=== PATIENT | female | born 1990 | race Caucasian/White ===

== ENCOUNTER 2017-09-10 19:23 | Emergency (ER) | payer OTHER, SELFPAY ==
[2017-09-10] MEDS ORDERED: MORPHINE SULFATE 4 MG INJ IV ONE ×2 (19:54→22:23)
[2017-09-10] MEDS ORDERED: Zofran 4 MG/2 ML VIAL IV ONE (19:54)
[2017-09-10] MEDS ORDERED: BENADRYL 50 MG/ML IV ONE ×2 (19:54→22:23)
[2017-09-10] MEDS ORDERED: Sodium Chloride 0.9% 1000 ML 1,000 ML IV STA (19:54)
--- NOTE | 2017-09-10 19:54 | ERPHSYRPT ---
- History of Present Illness Time Seen by Provider: 09/10/17 19:51 Historian: patient, family Exam Limitations: no limitations Physician History: pt hasw known abdominal ventral hernia awaiting repair and developed sharp pain in this area like none before about one hour agoa , no change in bowels or n/v no trauma; tender in right abd. discussed risk and benefit and pt /family wish to proceed with CT. Timing/Duration: today Activities at Onset: none Quality: sharpness, stabbing Abdominal Pain Onset Location: periumbilical Pain Radiation: no radiation Severity of Pain-Max: moderate Severity of Pain-Current: moderate Modifying Factors: Improves With: movement, palpation Previous symptoms: no prior history, recently seen Allergies/Adverse Reactions: No Known Drug Allergies Allergy (Unverified 06/13/16 23:03) Home Medications: Albuterol 2.5 mg/0.5 ml [PROVENTIL Solution 2.5 MG/0.5 ML] 06/13/16 [ History] Hx Tetanus, Diphtheria Vaccination/Date Given: No Hx Influenza Vaccination/Date Given: No Hx Pneumococcal Vaccination/Date Given: No - Review of Systems Constitutional: No Fever, No Chills Eyes: No Symptoms Ears, Nose, & Throat: No Symptoms Respiratory: No Cough, No Dyspnea Cardiac: No Chest Pain, No Edema, No Syncope Abdominal/Gastrointestinal: No Abdominal Pain, No Nausea, No Vomiting, No Diarrhea Genitourinary Symptoms: No Dysuria Musculoskeletal: No Back Pain, No Neck Pain Skin: No Rash Neurological: No Dizziness, No Focal Weakness, No Sensory Changes Psychological: No Symptoms Endocrine: No Symptoms Hematologic/Lymphatic: No Symptoms Immunological/Allergic: No Symptoms All Other Systems: Reviewed and Negative - Past Medical History Pertinent Past Medical History: Yes Respiratory History: Asthma - Past Surgical History Past Surgical History: Yes Gastrointestinal: Cholecystectomy Female Surgical History: Section - Social History Smoking Status: Current every day smoker Exposure to second hand smoke: Yes Drug Use: none Patient Lives Alone: No - Nursing Vital Signs Nursing Vital Signs: Initial Vital Signs Temperature 98.6 F 09/10/17 19:42 Pulse Rate 98 H 09/10/17 19:42 Respiratory Rate 18 09/10/17 19:42 Blood Pressure 148/69 09/10/17 19:42 O2 Sat by Pulse Oximetry 98 09/10/17 19:42 Pain Scale Pain Intensity 7 - Physical Exam General Appearance: no apparent distress, alert Eye Exam: PERRL/EOMI, eyes nml inspection Ears, Nose, Throat Exam: normal ENT inspection, pharynx normal, moist mucous membranes Neck Exam: normal inspection, non-tender, supple, full range of motion Respiratory Exam: normal breath sounds, lungs clear, No respiratory distress Cardiovascular Exam: regular rate/rhythm, normal heart sounds Gastrointestinal/Abdomen Exam: soft, No tenderness, No mass Pelvic Exam: deferred Rectal Exam: deferred Back Exam: normal inspection, normal range of motion, No CVA tenderness, No vertebral tenderness Extremity Exam: normal inspection, normal range of motion, pelvis stable Neurologic Exam: alert, oriented x 3, cooperative, normal mood/affect, nml cerebellar function, sensation nml, No motor deficits Skin Exam: normal color, warm, dry - Course Nursing assessment & vital signs reviewed: Yes - CT Exams Abdomen/Pelvis CT Interpretation: Tele-radiologist Report, Other (mild stranding in umbilical hernia; kidney stones nonubstructing.) Ordered Tests: Active Orders 24 hr Category Date Time Status Clean Catch Urine Specimen STAT Care 09/10/17 19:54 Active IV Insertion STAT Care 09/10/17 19:54 Active NPO (ED) STAT Care 09/10/17 19:54 Active ABDOMEN AND PELVIS W/0 CONTRAS [CT] Stat Exams 09/10/17 19:55 Taken AMYLASE Stat Lab 09/10/17 20:52 Completed CBC W DIFF Stat Lab 09/10/17 20:52 Completed CMP Stat Lab 09/10/17 20:52 Completed CULTURE,URINE Stat Lab 09/10/17 22:45 Received HCG QUALITATIVE,SERUM Stat Lab 09/10/17 20:52 Completed LIPASE Stat Lab 09/10/17 20:52 Completed Lactic Acid Stat Lab 09/10/17 20:25 Completed UA W/ MICROSCOPIC Stat Lab 09/10/17 22:45 Completed Medication Summary Discontinued Medications Generic Name Dose Route Start Last Admin Trade Name Freq PRN Reason Stop Dose Admin Diphenhydramine HCl 25 mg 09/10/17 19:54 09/10/17 20:30 Benadryl 50 Mg/Ml IV 09/10/17 19:55 25 mg STAT ONE Administration Diphenhydramine HCl Confirm 09/10/17 20:21 Benadryl 50 Mg/Ml Administered 09/10/17 20:22 Dose 50 mg .ROUTE .STK-MED ONE Diphenhydramine HCl 25 mg 09/10/17 22:23 09/10/17 22:36 Benadryl 50 Mg/Ml IV 09/10/17 22:24 25 mg STAT ONE Administration Diphenhydramine HCl Confirm 09/10/17 22:26 Benadryl 50 Mg/Ml Administered 09/10/17 22:27 Dose 50 mg .ROUTE .STK-MED ONE Sodium Chloride 1,000 mls @ 999 mls/hr 09/10/17 19:54 09/10/17 20:32 Sodium Chloride 0.9% 1000 Ml IV 09/10/17 20:54 999 mls/hr .Q1H1M STA Administration Sodium Chloride Confirm 09/10/17 20:21 Sodium Chloride 0.9% 1000 Ml Administered 09/10/17 20:22 Dose 1,000 mls @ ud .ROUTE .STK-MED ONE Morphine Sulfate 4 mg 09/10/17 19:54 09/10/17 20:31 Morphine Sulfate 4 Mg Inj IV 09/10/17 19:55 4 mg STAT ONE Administration Morphine Sulfate Confirm 09/10/17 20:21 Morphine Sulfate 4 Mg Inj Administered 09/10/17 20:22 Dose 4 mg .ROUTE .STK-MED ONE Morphine Sulfate 4 mg 09/10/17 22:23 09/10/17 22:36 Morphine Sulfate 4 Mg Inj IV 09/10/17 22:24 4 mg STAT ONE Administration Morphine Sulfate Confirm 09/10/17 22:27 Morphine Sulfate 4 Mg Inj Administered 09/10/17 22:28 Dose 4 mg .ROUTE .STK-MED ONE Ondansetron HCl 4 mg 09/10/17 19:54 09/10/17 20:31 Zofran 4 Mg/2 Ml Vial IV 09/10/17 19:55 4 mg STAT ONE Administration Ondansetron HCl Confirm 09/10/17 20:20 Zofran 4 Mg/2 Ml Vial Administered 09/10/17 20:21 Dose 4 mg .ROUTE .STK-MED ONE Lab/Rad Data: Laboratory Result Diagrams 09/10/17 20:52 09/10/17 20:52 Laboratory Results 09/10/17 09/10/17 09/10/17 Range/Units 22:45 20:52 20:52 WBC (4.0-10.5) K/mm3 RBC (4.1-5.4) M/mm3 Hgb (12.0-16.0) gm/dl Hct (35-47) % MCV (78-100) fl MCH (26-32) pg MCHC (32-36) g/dl RDW (11.5-14.0) % Plt Count (150-450) K/mm3 MPV (6-9.5) fl Gran % (36.0-66.0) % Lymphocytes % (24.0-44.0) % Monocytes % (0.0-12.0) % Eosinophils % (0.00-5.0) % Basophils % (0.0-0.4) % Basophils # (0-0.4) Sodium 142 (136-145) mEq/L Potassium 3.8 (3.5-5.1) mEq/L Chloride 107 (98-107) mEq/L Carbon Dioxide 23.3 (21-32) mEq/L Anion Gap 15.4 H (5-15) MEQ/L BUN 20 (9-20) mg/dL Creatinine 0.83 (0.55-1.30) mg/dl Estimated GFR > 60 ML/MIN Glucose 89 (70-110) MG/DL Lactic Acid (0.4-2.0) Calcium 9.2 (8.5-10.1) mg/dL Total Bilirubin 0.70 (0.2-1.0) mg/dL AST 35 (15-37) U/L ALT 59 (12-78) U/L Alkaline Phosphatase 70 (46-116) U/L Serum Total Protein 7.7 (6.4-8.2) gm/dL Albumin 4.3 (3.4-5.0) g/dL Amylase 41 (25-115) U/L Lipase 148 (73-393) U/L Serum , Qual NEGATIVE (Negative) Ur Collection Type VOID Urine Color YELLOW (YELLOW) Urine Appearance CLOUDY (CLEAR) Urine pH 6.0 (5-6) Ur Specific [place] 1.020 (1.005-1.025) Urine Protein NEGATIVE (Negative) Urine Ketones NEGATIVE (NEGATIVE) Urine Blood TRACE NON-HEM (0-5) Petr/ul Urine Nitrite NEGATIVE (NEGATIVE) Urine Bilirubin NEGATIVE (NEGATIVE) Urine Urobilinogen NORMAL (0-1) mg/dL Ur Leukocyte Esterase TRACE (NEGATIVE) Urine Microscopic RBC 5-10 (0-2) /HPF Urine Microscopic WBC 5-10 (0-5) /HPF Ur Epithelial Cells MANY (FEW) /HPF Urine Bacteria MODERATE (NEGATIVE) /HPF Urine Mucus MODERATE (NEGATIVE) /HPF Urine Culture Reflexed YES (NO) Urine Glucose NEGATIVE (NEGATIVE) mg/dL Specimen Received 09/10/17 2250 09/10/17 09/10/17 Range/Units 20:52 20:25 WBC 11.9 H (4.0-10.5) K/mm3 RBC 4.15 (4.1-5.4) M/mm3 Hgb 12.7 (12.0-16.0) gm/dl Hct 37.3 (35-47) % MCV 89.9 (78-100) fl MCH 30.6 (26-32) pg MCHC 34.0 (32-36) g/dl RDW 12.3 (11.5-14.0) % Plt Count 288 (150-450) K/mm3 MPV 11.1 H (6-9.5) fl Gran % 66.3 H (36.0-66.0) % Lymphocytes % 25.5 (24.0-44.0) % Monocytes % 5.9 (0.0-12.0) % Eosinophils % 2.1 (0.00-5.0) % Basophils % 0.2 (0.0-0.4) % Basophils # 0.02 (0-0.4) Sodium (136-145) mEq/L Potassium (3.5-5.1) mEq/L Chloride (98-107) mEq/L Carbon Dioxide (21-32) mEq/L Anion Gap (5-15) MEQ/L BUN (9-20) mg/dL Creatinine (0.55-1.30) mg/dl Estimated GFR ML/MIN Glucose (70-110) MG/DL Lactic Acid 1.1 (0.4-2.0) Calcium (8.5-10.1) mg/dL Total Bilirubin (0.2-1.0) mg/dL AST (15-37) U/L ALT (12-78) U/L Alkaline Phosphatase (46-116) U/L Serum Total Protein (6.4-8.2) gm/dL Albumin (3.4-5.0) g/dL Amylase (25-115) U/L Lipase (73-393) U/L Serum , Qual (Negative) Ur Collection Type Urine Color (YELLOW) Urine Appearance (CLEAR) Urine pH (5-6) Ur Specific [place] (1.005-1.025) Urine Protein (Negative) Urine Ketones (NEGATIVE) Urine Blood (0-5) Petr/ul Urine Nitrite (NEGATIVE) Urine Bilirubin (NEGATIVE) Urine Urobilinogen (0-1) mg/dL Ur Leukocyte Esterase (NEGATIVE) Urine Microscopic RBC (0-2) /HPF Urine Microscopic WBC (0-5) /HPF Ur Epithelial Cells (FEW) /HPF Urine Bacteria (NEGATIVE) /HPF Urine Mucus (NEGATIVE) /HPF Urine Culture Reflexed (NO) Urine Glucose (NEGATIVE) mg/dL Specimen Received - Progress Progress: improved, re-examined Progress Note: 09/10/17 23:53 pain is now controlled and lilliana PO; discussed that no precise etiology found and that undetected pathology may be evolving , ans that hernia could also eventually become incarc or coulf be in early stages but pt prefers DC to F/U as outpt instead of admit or furhter w/u in [facility]; she will return if pain recurs and will f/u with PCP otherwise; 09/10/17 23:56 she also prefers tx for uti with keflex at this time. 09/10/17 23:59 pt states no pelvic pain or discharge; 09/11/17 00:03 took extra time to get the UA delaying dispo; Counseled pt/family regarding: lab results, diagnosis, need for follow-up, rad results - Departure Time of Disposition: 23:55 Departure Disposition: Home Clinical Impression: Abdominal pain of unknown cause, Renal calculi, Umbilical hernia Condition: Good Critical Care Time: No Referrals: VENKATESH WIGGINS [Primary Care Provider] - Instructions: Abdominal Pain-Adult, Abdominal Hernia, Urinary Tract Infection ( UTI) Additional Instructions: followup with your dr for hernia repair as planned and to recheck urine and kidney stones; strain urine for stones we have not determined the exact cause for your pain at this time but could be kidney stones moving or an early hernia problem or some other problem not seen yet onthe CT sca\n; return meantime if any concenrs or getting worse agian. Prescriptions: Cephalexin Mh 500 mg [Keflex 500 mg] 500 mg PO TID #30 capsule Hydrocodone/Acetaminophen [[place] 5-325 Tablet] 1 each PO Q4-6HPRN PRN #10 tablet PRN Reason: Pain
[2017-09-10] MEDS ORDERED: Zofran 4 MG/2 ML VIAL ONE (20:20)
[2017-09-10] MEDS ORDERED: Sodium Chloride 0.9% 1000 ML 1,000 ML ONE (20:21)
[2017-09-10] MEDS ORDERED: MORPHINE SULFATE 4 MG INJ ONE ×2 (20:21→22:27)
[2017-09-10] MEDS ORDERED: BENADRYL 50 MG/ML ONE ×2 (20:21→22:26)
[2017-09-10 20:56] LABS: BASOPHIL % 0.2 % (0.0-0.4); Eosinophil % 2.1 % (0.00-5.0); Granulocytes % 66.3 % (36.0-66.0); Lymphocytes % 25.5 % (24.0-44.0); Mean Cell Volume 89.9 fl (78-100); Mean Corpuscular Hemoglobin 30.6 pg (26-32); Mean Platelet Volume 11.1 fl (6-9.5); Monocytes % 5.9 % (0.0-12.0); Platelet Count 288 K/mm3 (150-450); Red Blood Count 4.15 M/mm3 (4.1-5.4); Red Cell Distribution Width 12.3 % (11.5-14.0); White Blood Count 11.9 K/mm3 (4.0-10.5)
[2017-09-10 21:19] LABS: ALBUMIN 4.3 g/dL (3.4-5.0); ALKALINE PHOSPHATASE 70 U/L (46-116); ANION GAP 15.4 MEQ/L (5-15); BLOOD UREA NITROGEN 20 mg/dL (9-20); CHLORIDE 107 mEq/L (98-107); Carbon Dioxide 23.3 mEq/L (21-32); Glucose 89 MG/DL (70-110); LIPASE 148 U/L (73-393); Potassium 3.8 mEq/L (3.5-5.1); SGOT/AST 35 U/L (15-37); SGPT/ALT 59 U/L (12-78); SODIUM 142 mEq/L (136-145); Total Protein 7.7 gm/dL (6.4-8.2)
[2017-09-10 23:27] LABS: ADD URINE CULTURE? YES (NO); Bacteria MODERATE /HPF (NEGATIVE); Bilirubin NEGATIVE (NEGATIVE); Blood TRACE NON-HEM Ery/ul (0-5); COMPLETE URINE MICROSCOPIC? YES; Collection Type VOID; Epithelial Cells MANY /HPF (FEW); Glucose NEGATIVE (NEGATIVE); Leukocyte Esterase TRACE (NEGATIVE); Mucus MODERATE /HPF (NEGATIVE)
[2017-09-11] MEDS ORDERED: Hydromorphone 1 mg/ml Ampule IV ONE (00:02)
[2017-09-11] MEDS ORDERED: KEFLEX 500 MG PO ONE (00:02)
[2017-09-11] MEDS ORDERED: NORCO 5/325 MG PO ONE (00:02)
[2017-09-11] MEDS ORDERED: NORCO 5/325 MG ONE (00:08)
[2017-09-11] MEDS ORDERED: KEFLEX 500 MG ONE (00:15)
[2017-09-11] MEDS ORDERED: Hydromorphone 1 mg/ml Ampule ONE (00:16)
[2017-09-11 00:39] VITALS: BP 119/70; PULSE 76; O2SAT 100
--- NOTE | 2017-09-11 08:47 | XRAY ---
Indication: Right upper quadrant pain. Multiple contiguous axial images obtained through the abdomen and pelvis without contrast as ordered. Comparison: March 21, 2016. Lung bases are clear. Heart is not enlarged. Noncontrasted stomach and bowel loops appear nonobstructed. Normal appendix. There is again tiny cul-de-sac fluid presumed from ruptured/leaking cyst. No free air. Stable nonobstructing bilateral renal micro-calculi and cholecystectomy clips. Remaining liver, pancreas, spleen, adrenal glands, kidneys, ureters, bladder, uterus, and aorta appear unremarkable for noncontrast exam. Osseous structures intact. Stable tiny periumbilical fatty hernia with minimal stranding. Impression: 1. Again tiny cul-de-sac fluid presumed from ruptured/leaking cyst. 2. Stable nonobstructing bilateral renal micro-calculi. 3. Stable tiny periumbilical fatty hernia with minimal stranding. 4. No new or acute intra-abdominal/pelvic abnormalities on this noncontrast exam. Comment: Preliminary interpretation was made by C. No critical discrepancy. CTDI 18.03
== END 2017-09-11 00:39 | disposition home or self-care (01) ==
LOC: ED 19:23
DX: R10.9 Unspecified abdominal pain (principal); N20.0 Calculus of kidney; K42.9 Umbilical hernia without obstruction or gangrene
CPT/HCPCS: 36000; 36415; 74176; 80053; 81000; 82150; 83605; 83690; 84703; 85025; 87086; 96360; 96365; 96374; 96375; 96376; 99284; J1170; J1200; J2270; J2405; A9270-GY

== ENCOUNTER 2017-12-31 07:03 | Observation (INO) | payer OTHER ==
[2017-12-31] MEDS ORDERED: Sodium Chloride 0.9% 1000 ML 1,000 ML IV STA (07:37)
--- NOTE | 2017-12-31 07:44 | ERPHSYRPT ---
- History of Present Illness Time Seen by Provider: 12/31/17 07:33 Source: patient, family Exam Limitations: no limitations Patient Subjective Stated Complaint: states pt just got xanax prescription filled on 12/30/17. He states pt took 4 xanax on 12/30/17. He states 30 minutes prior to arrival pt took approx 26 0.5mg xanax due to anargument between her and . Triage Nursing Assessment: pt pink, warm, dry. pupils perrl.. pt has jerky movements. pt alert and oriented x3. speach slurred. Physician History: This is a 27-year-old white female with history of asthma Patient is brought by her with complaint that the patient had taken 26 0.5 mg Xanax tablets approximately one half hour prior to arrival patient apparently had been in an argument with her decided to take the Xanax. Patient states she wasn't trying to kill her self. includes patient does admit to methamphetamine use yesterday. Past medical history includes asthma, bladder cancer, hepatitis Past surgical history includes cholecystectomy, , hernia repair Social history positive tobacco use positive methamphetamine use patient denies alcohol use Timing/Duration: today Severity: moderate (one half hour prior to arrival) Modifying Factors: Improves With: other (intentional overdose of XANAX) Allergies/Adverse Reactions: No Known Drug Allergies Allergy (Unverified 12/31/17 07:30) Home Medications: Albuterol 2.5 mg/3 ml Neb [Proventil 2.5 mg/3 ml Neb] 2.5 mg IH Q4-6HPRN PRN 12/31/17 [History] Albuterol 8 gm Mdi Hfa [Ventolin Hfa MDI] 8 gm IH Q4-6HPRN PRN 12/31/17 [ History] Alprazolam 0.5 mg [xanAX 0.5 MG] 0.5 mg PO BID 12/31/17 [History] Paroxetine HCl [Paroxetine HCl] 20 mg PO DAILY 12/31/17 [History] Hx Tetanus, Diphtheria Vaccination/Date Given: Yes (up to date) Hx Influenza Vaccination/Date Given: Yes Hx Pneumococcal Vaccination/Date Given: No Immunizations Up to Date: Yes - Review of Systems Constitutional: No Fever, No Chills Eyes: No Symptoms Ears, Nose, & Throat: No Symptoms Respiratory: No Cough, No Dyspnea Cardiac: No Chest Pain, No Edema, No Syncope Abdominal/Gastrointestinal: No Abdominal Pain, No Nausea, No Vomiting, No Diarrhea Genitourinary Symptoms: No Dysuria Musculoskeletal: No Back Pain, No Neck Pain Skin: No Rash Neurological: No Dizziness, No Focal Weakness, No Sensory Changes Psychological: Drug Abuse, Other (intentional overdose of xanax) Endocrine: No Symptoms All Other Systems: Reviewed and Negative - Past Medical History Pertinent Past Medical History: Yes Respiratory History: Asthma History: Bladder Cancer - Past Surgical History Past Surgical History: Yes Gastrointestinal: Hernia Repair Female Surgical History: Section Other Surgical History: hernia repair 2015 - Social History Smoking Status: Current every day smoker How long have you smoked: 18 Exposure to second hand smoke: Yes Drug Use: marijuana, methamphetamines Patient Lives Alone: No - Female History Hx Last Menstrual Period: minimal periods Hx Now: No - Nursing Vital Signs Nursing Vital Signs: Initial Vital Signs Temperature 97.4 F 12/31/17 07:05 Pulse Rate 92 H 12/31/17 07:05 Respiratory Rate 18 12/31/17 07:05 Blood Pressure 110/60 12/31/17 07:05 O2 Sat by Pulse Oximetry 97 12/31/17 07:05 Pain Scale Pain Intensity 0 - Physical Exam General Appearance: other (well_developed well_nourished white female slurry speech) Eye Exam: PERRL/EOMI (fundi unremarkable), eyes nml inspection, other (fundi unremarkable) Ears, Nose, Throat Exam: normal ENT inspection, TMs normal, pharynx normal, moist mucous membranes Neck Exam: normal inspection, non-tender, supple, full range of motion Respiratory Exam: normal breath sounds, lungs clear, No respiratory distress Cardiovascular Exam: regular rate/rhythm, normal heart sounds, normal peripheral pulses Gastrointestinal/Abdomen Exam: soft, normal bowel sounds, No tenderness, No mass Back Exam: normal inspection, normal range of motion, No CVA tenderness, No vertebral tenderness Extremity Exam: normal inspection, normal range of motion, pelvis stable Neurologic Exam: alert, oriented x 3, cooperative, normal mood/affect, nml cerebellar function, nml station & gait, sensation nml, No motor deficits Skin Exam: normal color, warm, dry, No rash Lymphatic Exam: No adenopathy SpO2 Interpretation: normal (97%) - Course Nursing assessment & vital signs reviewed: Yes EKG Interpreted by Me: RATE (84 bpm), Sinus Rhythm, NORMAL AXIS, Other (EKG, normal sinus rhythm 64 beats for minute, normal axis, no acute ST or T wave changes, essentially normal EKG) Ordered Tests: Active Orders 24 hr Category Date Time Status Bedrest ROUTINE Activity 12/31/17 10:08 Active Admission/Status Order ROUTINE Care 12/31/17 10:08 Active Call Admit Doctor for Orders ON ADMISSION Care 12/31/17 10:08 Active Code Status Order ROUTINE Care 12/31/17 10:08 Active Consult Telemental Health ROUTINE Care 12/31/17 10:08 Active EKG-ER Only STAT Care 12/31/17 07:37 Completed IV Care Q6H Care 12/31/17 10:08 Active IV Insertion STAT Care 12/31/17 07:37 Completed Neuro Checks Q2H Care 12/31/17 10:08 Active Pulse Oximetry (ED) STAT Care 12/31/17 07:37 Completed Telemetry ROUTINE Care 12/31/17 10:08 Active Clear Liquid Diet 12/31/17 Lunch Completed ACETAMINOPHEN Stat Lab 12/31/17 08:00 Completed ACETAMINOPHEN Urgent Lab 12/31/17 12:00 Completed CBC W DIFF Stat Lab 12/31/17 08:00 Completed CMP Stat Lab 12/31/17 08:00 Completed ETHYL ALCOHOL Stat Lab 12/31/17 08:00 Completed HCG QUALITATIVE,SERUM Stat Lab 12/31/17 08:00 Completed SALICYLATE Stat Lab 12/31/17 08:00 Completed UA W/RFX UR CULTURE Stat Lab 12/31/17 07:37 Ordered Urine Triage Profile Stat Lab 12/31/17 08:00 Completed Pulse Oximetry CONTINUOUS RT 12/31/17 10:08 Active Transfer Order Routine Transfer 12/31/17 Completed Medication Summary Generic Name Dose Route Start Last Admin Trade Name Freq PRN Reason Stop Dose Admin Albuterol Sulfate 2.5 mg 12/31/17 15:10 Proventil 2.5 Mg/3 Ml Neb IH 01/30/18 15:09 Q4H PRN PRN SHORTNESS OF BREATH/WHEEZING Albuterol Sulfate 2 puff 12/31/17 15:12 Proventil Common Canister IH 01/30/18 15:11 Q4H PRN PRN Sodium Chloride 1,000 mls @ 100 mls/hr 12/31/17 10:08 12/31/17 10:24 Sodium Chloride 0.9% 1000 Ml IV 01/30/18 10:07 Not Given .Q10H PRISCILLA Paroxetine HCl 20 mg 12/31/17 15:15 12/31/17 15:22 Paxil 20 Mg PO 01/30/18 15:14 Not Given DAILY PRISCILLA Discontinued Medications Generic Name Dose Route Start Last Admin Trade Name Freq PRN Reason Stop Dose Admin Sodium Chloride 1,000 mls @ 999 mls/hr 12/31/17 07:37 12/31/17 08:21 Sodium Chloride 0.9% 1000 Ml IV 12/31/17 08:37 999 mls/hr .Q1H1M STA Administration Sodium Chloride Confirm 12/31/17 08:12 Sodium Chloride 0.9% 1000 Ml Administered 12/31/17 08:13 Dose 1,000 mls @ ud .ROUTE .[email or web address] Lab/Rad Data: Laboratory Result Diagrams 12/31/17 08:00 12/31/17 08:00 Laboratory Results 12/31/17 12/31/17 12/31/17 Range/Units 08:00 08:00 08:00 WBC 9.6 (4.0-10.5) K/mm3 RBC 4.40 (4.1-5.4) M/mm3 Hgb 13.1 (12.0-16.0) gm/dl Hct 39.3 (35-47) % MCV 89.3 (78-100) fl MCH 29.8 (26-32) pg MCHC 33.3 (32-36) g/dl RDW 12.5 (11.5-14.0) % Plt Count 288 (150-450) K/mm3 MPV 10.6 H (6-9.5) fl Gran % 56.4 (36.0-66.0) % Lymphocytes % 31.4 (24.0-44.0) % Monocytes % 9.9 (0.0-12.0) % Eosinophils % 2.0 (0.00-5.0) % Basophils % 0.3 (0.0-0.4) % Basophils # 0.03 (0-0.4) Sodium 140 (136-145) mEq/L Potassium 3.9 (3.5-5.1) mEq/L Chloride 105 (98-107) mEq/L Carbon Dioxide 25.7 (21-32) mEq/L Anion Gap 13.3 (5-15) MEQ/L BUN 20 (9-20) mg/dL Creatinine 0.99 (0.55-1.30) mg/dl Estimated GFR > 60 ML/MIN Glucose 70 (70-110) MG/DL Calcium 9.8 (8.5-10.1) mg/dL Total Bilirubin 0.30 (0.2-1.0) mg/dL AST 35 (15-37) U/L ALT 52 (12-78) U/L Alkaline Phosphatase 74 (46-116) U/L Serum Total Protein 7.9 (6.4-8.2) gm/dL Albumin 4.2 (3.4-5.0) g/dL Serum , Qual NEGATIVE (Negative) Salicylates 3.0 (2.8-20.0) mg/dl Urine Opiates Level (NEGATIVE) Ur Methadone (NEGATIVE) Acetaminophen < 2.0 L (10-30) ug/ml Urine Barbiturates (NEGATIVE) Ur Phencyclidine (PCP) (NEGATIVE) Urine Amphetamine (NEGATIVE) U Benzodiazepine Level (NEGATIVE) Urine Cocaine (NEGATIVE) Urine Marijuana (THC) (NEGATIVE) Ethyl Alcohol < 0.010 (0.00-0.01) % 12/31/17 Range/Units 08:00 WBC (4.0-10.5) K/mm3 RBC (4.1-5.4) M/mm3 Hgb (12.0-16.0) gm/dl Hct (35-47) % MCV (78-100) fl MCH (26-32) pg MCHC (32-36) g/dl RDW (11.5-14.0) % Plt Count (150-450) K/mm3 MPV (6-9.5) fl Gran % (36.0-66.0) % Lymphocytes % (24.0-44.0) % Monocytes % (0.0-12.0) % Eosinophils % (0.00-5.0) % Basophils % (0.0-0.4) % Basophils # (0-0.4) Sodium (136-145) mEq/L Potassium (3.5-5.1) mEq/L Chloride (98-107) mEq/L Carbon Dioxide (21-32) mEq/L Anion Gap (5-15) MEQ/L BUN (9-20) mg/dL Creatinine (0.55-1.30) mg/dl Estimated GFR ML/MIN Glucose (70-110) MG/DL Calcium (8.5-10.1) mg/dL Total Bilirubin (0.2-1.0) mg/dL AST (15-37) U/L ALT (12-78) U/L Alkaline Phosphatase (46-116) U/L Serum Total Protein (6.4-8.2) gm/dL Albumin (3.4-5.0) g/dL Serum , Qual (Negative) Salicylates (2.8-20.0) mg/dl Urine Opiates Level NEG. (NEGATIVE) Ur Methadone NEG. (NEGATIVE) Acetaminophen (10-30) ug/ml Urine Barbiturates NEG. (NEGATIVE) Ur Phencyclidine (PCP) NEG. (NEGATIVE) Urine Amphetamine POS. (NEGATIVE) U Benzodiazepine Level POS. (NEGATIVE) Urine Cocaine NEG. (NEGATIVE) Urine Marijuana (THC) NEG. (NEGATIVE) Ethyl Alcohol (0.00-0.01) % - Progress Progress: improved Progress Note: 12/31/17 08:41 Patient somnolent. Vital signs stable. O2 sat 99%. CBC chemistry essentially normal. Urine drug screen positive for amphetamines and benzodiazepines. Patient receiving IV normal saline. Poison control contacted by the patient's nurse recommends supportive care. Patient will need monitoring. Case discussed with Dr. Patiño. Will place on ICU observation. Repeat acetaminophen level IV hours after last draw. Patient will need psych consult. - Departure Time of Disposition: 09:45 Departure Disposition: Observation Clinical Impression: Intentional benzodiazepine overdose Qualifiers: Encounter type: initial encounter Qualified Code(s): T42.4X2A - Poisoning by benzodiazepines, intentional self-harm, initial encounter Condition: Fair Critical Care Time: No
[2017-12-31 08:09] LABS: BASOPHIL % 0.3 % (0.0-0.4); Basophil (Absolute #) 0.03 (0-0.4); Eosinophil (Absolute #) 0.19 (0-0.5); Granulocyte Absolute (ANC) 5.44 (1.4-6.9); Granulocytes % 56.4 % (36.0-66.0); Hematocrit 39.3 % (35-47); Hemoglobin 13.1 gm/dl (12.0-16.0); Lymphocyte (Absolute #) 3.02 (1.0-4.6); Lymphocytes % 31.4 % (24.0-44.0); Mean Cell Volume 89.3 fl (78-100); Mean Corpuscular Hemoglobin 29.8 pg (26-32); Mean Corpuscular Hgb Concent. 33.3 g/dl (32-36); Mean Platelet Volume 10.6 fl (6-9.5); Monocyte (Absolute #) 0.95 (0.0-1.3); Monocytes % 9.9 % (0.0-12.0); Platelet Count 288 K/mm3 (150-450); Red Cell Distribution Width 12.5 % (11.5-14.0); White Blood Count 9.6 K/mm3 (4.0-10.5)
[2017-12-31] MEDS ORDERED: Sodium Chloride 0.9% 1000 ML 1,000 ML ONE (08:12)
[2017-12-31 08:18] LABS: Amphetamine,Urine POS. (NEGATIVE); Barbiturate,Urine NEG. (NEGATIVE); Benzodiazepine,Urine POS. (NEGATIVE); Cocaine,Urine NEG. (NEGATIVE); Methadone,Urine NEG. (NEGATIVE); Opiate,Urine NEG. (NEGATIVE); PCP,Urine NEG. (NEGATIVE); THC,Urine NEG. (NEGATIVE)
[2017-12-31 08:31] LABS: ALBUMIN 4.2 g/dL (3.4-5.0); ALKALINE PHOSPHATASE 74 U/L (46-116); ANION GAP 13.3 MEQ/L (5-15); BLOOD UREA NITROGEN 20 mg/dL (9-20); CHLORIDE 105 mEq/L (98-107); Calcium 9.8 mg/dL (8.5-10.1); Carbon Dioxide 25.7 mEq/L (21-32); Creatinine 1 0.99 mg/dl (0.55-1.30); EST GLOMERULAR FILTRATION RATE > 60 ML/MIN; ETHYL ALCOHOL < 0.010 % (0.00-0.01); Glucose 70 MG/DL (70-110); Potassium 3.9 mEq/L (3.5-5.1); SGOT/AST 35 U/L (15-37); SGPT/ALT 52 U/L (12-78); SODIUM 140 mEq/L (136-145); Total Protein 7.9 gm/dL (6.4-8.2)
[2017-12-31 08:34] LABS: ACETAMINOPHEN < 2.0 ug/ml (10-30)
[2017-12-31] MEDS ORDERED: Sodium Chloride 0.9% 1000 ML 1,000 ML IV SCH (10:08)
--- NOTE | 2017-12-31 14:01 | PCM.HP ---
History of Present Illness - Chief Complaint Chief Complaint: overdose History of Present Illness: is a 27 year old female pt who per ER note took about #20 of xanax 0.5 mg pills. She is somnolent and unable to answer any questions. Per RN her said, "She doesn't need to be here. She just took those because she was mad at me." She wakes briefly to voice then falls right back to sleep. She is somewhat cooperative (opens her mouth very briefly to me upon request). Labs were positive for amphetamines and benzodiazepines. Tylenol and aspirin levels negative. - Review of Systems All Other Systems: Unable due to condition Medications & Allergies Home Medications: Home Medication List Albuterol 2.5 mg/3 ml Neb [Proventil 2.5 mg/3 ml Neb] 2.5 mg IH Q4-6HPRN PRN 12/31/17 [History Confirmed 12/31/17] Albuterol 8 gm Mdi Hfa [Ventolin Hfa MDI] 8 gm IH Q4-6HPRN PRN 12/31/17 [ History Confirmed 12/31/17] Alprazolam 0.5 mg [xanAX 0.5 MG] 0.5 mg PO BID 12/31/17 [History Confirmed 12/31/17] Paroxetine HCl [Paroxetine HCl] 20 mg PO DAILY 12/31/17 [History Confirmed 12/31] Allergies/Adverse Reactions: Allergies Allergy/AdvReac Type Severity Reaction Status Date / Time No Known Drug Allergies Allergy Unverified 12/31/17 07:30 - Past Medical History Past Medical History: Yes Respiratory History: Asthma History: Bladder Cancer - Female History Hx Last Menstrual Period: minimal periods Are you now?: (unable to assess) - Past Surgical History Past Surgical History: Yes GI Surgical History: Hernia Repair Female Surgical History: Section Other Surgical History: hernia repair 2015 - Social History Smoking Status: Unknown if ever smoked How long have you smoked: 18 Exposure to second hand smoke: Yes Alcohol: None Drug Use: marijuana, methamphetamines - Physical Exam Vital Signs: Vital Signs - 24 hr Temp Pulse Resp BP Pulse Ox 12/31/17 13:46 97 F 90 18 91/52 99 12/31/17 12:00 97 F 79 18 94/64 99 02/10/18 10:16 97 F 81 18 92/62 99 12/31/17 10:11 100 12/31/17 08:57 78 18 108/60 99 12/31/17 08:23 81 18 118/74 99 12/31/17 07:05 97.4 F 92 H 18 110/60 99 General Appearance: other (somnolent; wakes briefly to voice) Neurologic Exam: other (speech is slurred; cannot complete a sentence aside from "I have to pee" x 1) Eye Exam: other (Pupils equal, round, dilated, sluggishly reactive bilaterally.) Ears, Nose, Throat Exam: pharynx normal, moist mucous membranes Respiratory Exam: normal breath sounds, lungs clear, No crackles/rales, No rhonchi, No wheezing Cardiovascular Exam: regular rate/rhythm, normal heart sounds, No murmur Gastrointestinal/Abdomen Exam: soft, normal bowel sounds, tenderness (suprapubic ; states, "I have to pee"), No distention, No mass Extremity Exam: normal inspection, No pedal edema, No swelling Skin Exam: normal color, warm, dry, No rash Results - Labs Lab/Micro Results: Lab Results-Last 24 Hours 12/31/17 Range/Units 12:00 Acetaminophen < 2.0 L (10-30) ug/ml Assessment/Plan (1) Intentional benzodiazepine overdose Current Visit: Yes Status: Acute Qualifiers: Encounter type: initial encounter Qualified Code(s): T42.4X2A - Poisoning by benzodiazepines, intentional self-harm, initial encounter Assessment & Plan: When medically cleared, will need to have a telemental consult. on telemetry in ICU. Code(s): T42.4X2A - POISONING BY BENZODIAZEPINES, INTENTIONAL SELF-HARM, INIT
[2017-12-31] MEDS ORDERED: Ventolin Hfa MDI IH PRN (15:10)
[2017-12-31] MEDS ORDERED: PROVENTIL 2.5 MG/3 ML NEB IH PRN (15:10)
[2017-12-31] MEDS ORDERED: PROVENTIL COMMON CANISTER IH PRN (15:12)
[2017-12-31] MEDS ORDERED: Paxil 20 MG PO SCH (15:15)
[2017-12-31 15:56] VITALS: BP 94/54
[2017-12-31 16:43] VITALS: O2SAT 97
[2017-12-31 18:04] VITALS: PULSE 99
== END 2017-12-31 20:30 | disposition left against medical advice (07) ==
LOC: ED 07:03 → ICU 09:49
PROVIDERS: ADMIT Family Medicine; ATTEND Family Medicine
DX: T42.4X2A Poisoning by benzodiazepines, intentional self-harm, initial encounter (principal); Z79.899 Other long term (current) drug therapy
CPT/HCPCS: 36000; 36415; 80053; 80307; 84703; 85025; 90791; 93005; 96360; 96361; 99285; G0378; G0480; G0481; Q3014

== ENCOUNTER 2019-05-15 10:04 | Emergency (ER) | payer OTHER ==
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
[2019-05-15] MEDS ORDERED: ZOFRAN ODT 4 MG ONE (10:36)
[2019-05-15] MEDS ORDERED: MOTRIN 600 MG ONE (10:36)
[2019-05-15] MEDS: ZOFRAN ODT 4 MG PO ONE (10:39)
[2019-05-15 10:58] VITALS: BP 138/80; PULSE 92
[2019-05-15] MEDS: MOTRIN 600 MG PO ONE (11:24)
[2019-05-15 11:31] VITALS: O2SAT 99
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
== END 2019-05-15 11:42 | disposition home or self-care (01) ==
LOC: ED 10:04
DX: S00.93XA Contusion of unspecified part of head, initial encounter (principal); S06.0X0A Concussion without loss of consciousness, initial encounter; V28.1XXA Motorcycle passenger injured in noncollision transport accident in nontraffic accident, initial encounter; J45.909 Unspecified asthma, uncomplicated; K75.9 Inflammatory liver disease, unspecified; Z85.51 Personal history of malignant neoplasm of bladder
CPT/HCPCS: 70450; 84703; 99284; Q0162; A9270-GY

== ENCOUNTER 2019-06-20 02:01 | Emergency (ER) | payer MEDICAID ==
[2019-06-20 02:11] VITALS: O2SAT 99
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
[2019-06-20] MEDS ORDERED: NORCO 5/325 MG PO ONE ×2 (02:53→02:54)
[2019-06-20] MEDS ORDERED: NORCO 5/325 MG ONE (03:09)
[2019-06-20 03:24] VITALS: BP 105/79; PULSE 94
--- NOTE | 2019-06-20 08:51 | XRAY ---
Indication: Pain/bruising following fall. 3 views of the right ankle demonstrates displaced 5th metatarsal base fracture. Incidental posterior talus accessory ossicle. No other bony, articular, or soft tissue abnormalities.
--- NOTE | 2019-06-20 08:53 | XRAY ---
Indication: Pain/bruising following fall. 3 nonweightbearing views of the right foot demonstrates mildly displaced 5th metatarsal base fracture with soft tissue swelling. Incidental posterior talus accessory ossicle. No other bony, articular, or soft tissue abnormalities.
== END 2019-06-20 03:40 | disposition home or self-care (01) ==
LOC: ED 02:01
DX: S92.351A Displaced fracture of fifth metatarsal bone, right foot, initial encounter for closed fracture (principal); S00.33XA Contusion of nose, initial encounter; M79.671 Pain in right foot; W17.89XA Other fall from one level to another, initial encounter; X50.1XXA Overexertion from prolonged static or awkward postures, initial encounter; Y92.89 Other specified places as the place of occurrence of the external cause; J45.909 Unspecified asthma, uncomplicated; Z85.51 Personal history of malignant neoplasm of bladder; K75.9 Inflammatory liver disease, unspecified
CPT/HCPCS: 29515; 73610; 73630; 99284; L4386; A9270-GY

== ENCOUNTER 2020-12-16 21:17 | Emergency (ER) | payer MEDICAID ==
[2020-12-16] MEDS ORDERED: Augmentin 875-125 Tablet PO ONE (21:41)
--- NOTE | 2020-12-16 21:49 | ERPHSYRPT ---
- History of Present Illness Time Seen by Provider: 12/16/20 21:40 Source: patient Exam Limitations: no limitations Physician History: Patient is a 30-year-old female who presents to our department for evaluation of a dog bite to her right hand. Patient was at a family member's house. The family member dog bit patient's right hand as she reached for a card. Injury occurred about 2 hours prior to arrival. Tetanus up-to-date. No other injuries reported. Pain described as an ache that is localized. No radiation. Pain worse with movement and palpation. Pain improved with rest. No numbness tingling or weakness. Patient voices no other complaints or concerns at this time. Timing/Duration: today Severity: moderate Modifying Factors: Improves With: nothing Associated Symptoms: denies symptoms Allergies/Adverse Reactions: No Known Drug Allergies Allergy (Verified 12/16/20 21:39) Home Medications: Albuterol Sulfate [Albuterol Sulfate Hfa] 2 puffs IH Q4HPRN PRN 06/20/19 [History] Hx Tetanus, Diphtheria Vaccination/Date Given: Yes (2014) Hx Influenza Vaccination/Date Given: No Hx Pneumococcal Vaccination/Date Given: No - Review of Systems Constitutional: No Symptoms, No Fever, No Chills Eyes: No Symptoms Ears, Nose, & Throat: No Symptoms Respiratory: No Symptoms, No Cough, No Dyspnea Cardiac: No Symptoms, No Chest Pain, No Edema, No Syncope Abdominal/Gastrointestinal: No Symptoms, No Abdominal Pain, No Nausea, No Vomiting, No Diarrhea Genitourinary Symptoms: No Symptoms, No Dysuria Musculoskeletal: No Symptoms, No Back Pain, No Neck Pain Skin: No Symptoms, No Rash Neurological: No Symptoms, No Dizziness, No Focal Weakness, No Sensory Changes Psychological: No Symptoms Endocrine: No Symptoms Hematologic/Lymphatic: No Symptoms Immunological/Allergic: No Symptoms All Other Systems: Reviewed and Negative - Past Medical History Pertinent Past Medical History: Yes Neurological History: No Pertinent History ENT History: No Pertinent History Cardiac History: No Pertinent History Respiratory History: Asthma Endocrine Medical History: No Pertinent History Musculoskeletal History: No Pertinent History GI Medical History: No Pertinent History History: No Pertinent History Psycho-Social History: No Pertinent History Female Reproductive Disorders: No Pertinent History - Past Surgical History Past Surgical History: Yes Neuro Surgical History: No Pertinent History Cardiac: No Pertinent History Respiratory: No Pertinent History Gastrointestinal: Cholecystectomy, Hernia Repair Genitourinary: No Pertinent History Musculoskeletal: No Pertinent History Female Surgical History: Section Other Surgical History: hernia repair with mesh x2 - Social History Smoking Status: Current every day smoker How long have you smoked: 10 years Exposure to second hand smoke: Yes Drug Use: none Patient Lives Alone: No - Female History Hx Now: No - Nursing Vital Signs Nursing Vital Signs: Initial Vital Signs Temperature 98.0 F 12/16/20 21:36 Pulse Rate 105 H 12/16/20 21:36 Respiratory Rate 20 12/16/20 21:36 Blood Pressure 110/82 12/16/20 21:36 O2 Sat by Pulse Oximetry 97 12/16/20 21:36 Pain Scale Pain Intensity 8 - Physical Exam General Appearance: no apparent distress, alert Eye Exam: PERRL/EOMI, eyes nml inspection Ears, Nose, Throat Exam: normal ENT inspection, TMs normal, pharynx normal, moist mucous membranes Neck Exam: normal inspection, non-tender, supple, full range of motion Respiratory Exam: normal breath sounds, lungs clear, No respiratory distress Cardiovascular Exam: regular rate/rhythm, normal heart sounds, normal peripheral pulses Gastrointestinal/Abdomen Exam: soft, normal bowel sounds, No tenderness, No mass Back Exam: normal inspection, normal range of motion, No CVA tenderness, No vertebral tenderness Extremity Exam: normal inspection, normal range of motion, pelvis stable, other Neurologic Exam: alert, oriented x 3, cooperative, normal mood/affect, nml station & gait, sensation nml, No motor deficits Skin Exam: normal color, warm, dry, No rash Lymphatic Exam: No adenopathy SpO2 Interpretation: normal SpO2: 97 O2 Delivery: Room Air - Course Nursing assessment & vital signs reviewed: Yes - Radiology Exams Hand X-ray Interpretation: Interpreted by me (No fractures dislocations. Punctate areas of subcutaneous gas due to puncture wounds from dog bite.) Ordered Tests: Active Orders 24 hr Category Date Time Status HAND (MINIMUM 3 VIEWS) Stat Exams 12/16/20 21:40 Taken Medication Summary Discontinued Medications Generic Name Dose Route Start Last Admin Trade Name Freq PRN Reason Stop Dose Admin Amoxicillin/Clavulanate Potassium 875 mg 12/16/20 21:41 Augmentin 875-125 Tablet PO 12/16/20 21:42 STAT ONE Amoxicillin/Clavulanate Potassium Confirm 12/16/20 22:05 Augmentin 875-125 Tablet Administered 12/16/20 22:06 Dose 875 mg .ROUTE .STK-MED ONE - Progress Progress: improved Progress Note: 12/16/20 22:17 Patient reassessed. Pain improved after pain medication. Patient received a dose of Augmentin in our ED. tetanus is up-to-date. X-ray negative for fracture dislocation. Wound cleaned. Local wound care rendered. Patient will receive Augmentin prescription. Patient to follow-up with primary care doctor within 48 hours for reevaluation. 12/16/20 22:20 Counseled pt/family regarding: diagnosis, need for follow-up, rad results - Departure Departure Disposition: Home Clinical Impression: Dog bite Condition: Stable Critical Care Time: No Referrals: DUSTIN MEZA NP [Primary Care Provider] - Instructions: Animal Bites (DC) Additional Instructions: Discharge/Care Plan LUCIO NATION was seen on 12/16/20 in the Emergency Room. The patient was counseled regarding Diagnosis,Lab results, Imaging studies, need for follow up and when to return to the Emergency Room. Prescriptions given: Discharge Note I have spoken with the patient and/or caregivers. I have explained the patient's condition, diagnosis and treatment plan based on the information available to me at this time. I have answered the patient's and/or caregiver's questions and addressed any concerns. The patient and/or caregivers have as good understanding of the patient's diagnosis, condition and treatment plan as can be expected at this point. The vital signs have been stable. The patient's condition is stable and appropriate for discharge from the emergency department. The patient will pursue further outpatient evaluation with the primary care physician or other designated or consulting physician as outlined in the discharge instructions. The patient and/or caregivers are agreeable to this plan of care and follow-up instructions have been explained in detail. The patient and/or caregivers have received these instruction. The patient/and or caregivers are aware that any significant change in condition or worsening of symptoms should prompt an immediate return to this or the closest emergency department or call 911. Prescriptions: Amox Tr/Potass Clav. 875 mg [Augmentin 875-125 Tablet] 875 mg PO BID 7 Days #14 tablet
[2020-12-16] MEDS ORDERED: Augmentin 875-125 Tablet ONE (22:05)
[2020-12-16 22:34] VITALS: BP 103/65; PULSE 96; O2SAT 98
--- NOTE | 2020-12-17 09:26 | XRAY ---
Indication: Pain and swelling following dog bite. Comparison: None 3 view right hand demonstrates diffuse soft tissue swelling and soft tissue air bubbles posterior lateral to 5th metacarpal. No other bony, articular, or soft tissue abnormalities.
== END 2020-12-16 22:40 | disposition home or self-care (01) ==
LOC: ED 21:17
DX: S61.451A Open bite of right hand, initial encounter (principal)
CPT/HCPCS: 73130; 99283; A9270-GY

== ENCOUNTER 2021-09-06 20:30 | Emergency (ER) | payer OTHER ==
[2021-09-06] MEDS ORDERED: SUBLIMAZE 100 MCG/2 ML IV ONE (21:24)
[2021-09-06] MEDS ORDERED: Sodium Chloride 0.9% 1000 ML 1,000 ML IV STA (21:24)
[2021-09-06] MEDS ORDERED: BENADRYL 50 MG/ML IV ONE (21:24)
[2021-09-06] MEDS ORDERED: TORAdol 30 mg Injection IV ONE (21:24)
[2021-09-06] MEDS ORDERED: Reglan 10 MG/2 ML IV ONE (21:24)
[2021-09-06 21:30] VITALS: O2SAT 100
[2021-09-06] MEDS ORDERED: Reglan 10 MG/2 ML ONE (21:51)
[2021-09-06] MEDS ORDERED: TORAdol 30 mg Injection ONE (21:51)
[2021-09-06] MEDS ORDERED: Sodium Chloride 0.9% 1000 ML 1,000 ML ONE (21:51)
[2021-09-06] MEDS ORDERED: BENADRYL 50 MG/ML ONE (21:51)
[2021-09-06] MEDS ORDERED: SUBLIMAZE 100 MCG/2 ML ONE (21:51)
[2021-09-06 22:16] LABS: Absolute Neutrophil Ct (ANC) 4.56 (1.4-6.9); BASOPHIL % 0.4 % (0.0-0.4); Basophil (Absolute #) 0.03 (0-0.4); Eosinophil (Absolute #) 0.31 (0-0.5); Lymphocyte (Absolute #) 2.12 (1.0-4.6); Lymphocytes % 27.5 % (24.0-44.0); Mean Cell Volume 92.1 fl (78-100); Mean Corpuscular Hemoglobin 29.2 pg (26-32); Mean Corpuscular Hgb Concent. 31.7 g/dl (32-36); Mean Platelet Volume 10.6 fl (7.5-11.0); Monocyte (Absolute #) 0.68 (0.0-1.3); Monocytes % 8.8 % (0.0-12.0); Neutrophil % 59.3 % (36.0-66.0); Platelet Count 239 K/mm3 (150-450); Red Blood Count 4.45 M/mm3 (4.1-5.4); White Blood Count 7.7 K/mm3 (4.0-10.5)
[2021-09-06 22:23] LABS: INR 0.92 (0.8-3.0); PROTIME 10.9 SECONDS (9.4-12.5)
[2021-09-06 22:27] LABS: ALKALINE PHOSPHATASE 72 U/L (38-126); ANION GAP 13.1 MEQ/L (5-15); BLOOD UREA NITROGEN 10 mg/dL (7-17); CHLORIDE 103 mmol/L (98-107); Carbon Dioxide 27 mmol/L (22-30); Creatinine 1 0.59 mg/dL (0.52-1.04); EST GLOMERULAR FILTRATION RATE > 60.0 ML/MIN; Glucose 114 mg/dL (74-106); Potassium 3.4 mmol/L (3.5-5.1); SGOT/AST 38 U/L (14-36); SGPT/ALT 43 U/L (0-35); SODIUM 140 mmol/L (137-145); Total Protein 7.1 g/dL (6.3-8.2)
[2021-09-06 23:39] LABS: INFLUENZA A NEGATIVE (NEGATIVE); INFLUENZA B NEGATIVE (NEGATIVE); RESPIRATORY SYNCTIAL VIRUS NEGATIVE (Negative); SARS-CoV-2 Xpert Express NEGATIVE (NEGATIVE)
--- NOTE | 2021-09-06 23:42 | ERPHSYRPT ---
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 She has had some coughing she has a history of asthma on admission she was afebrile. Timing/Duration: yesterday Quality: aching Head Pain Location: global Severity of Pain-Max: severe Severity of Pain-Current: mild Recent Head Trauma: frequent headaches Modifying Factors: Improves With: exposure to light, movement, noise Previous symptoms: same symptoms as today Allergies/Adverse Reactions: banana Allergy (Verified 09/06/21 21:18) Anaphylactic Reaction Home Medications: Albuterol Sulfate [Albuterol Sulfate Hfa] 2 puffs IH Q4HPRN PRN 06/20/19 [History] Hx Tetanus, Diphtheria Vaccination/Date Given: Yes (2014) Hx Influenza Vaccination/Date Given: No Hx Pneumococcal Vaccination/Date Given: No Travel Risk - International Travel Have you traveled outside of the country in past 3 weeks: No - Coronavirus Screening Are you exhibiting any of the following symptoms?: Yes Symptoms: Headaches/Body Aches/Fatigue - Vaccine Status Have you recieved a Covid-19 vaccination: No - Review of Systems Constitutional: No Fever, No Chills Eyes: Photophobia Ears, Nose, & Throat: No Symptoms Respiratory: Cough, No Dyspnea Cardiac: No Chest Pain, No Edema, No Syncope Abdominal/Gastrointestinal: No Abdominal Pain, No Nausea, No Vomiting, No Diarrhea Genitourinary Symptoms: No Dysuria Musculoskeletal: No Back Pain, No Neck Pain Skin: No Rash Neurological: No Dizziness, No Focal Weakness, No Sensory Changes Psychological: No Symptoms Endocrine: No Symptoms All Other Systems: Reviewed and Negative - Past Medical History Pertinent Past Medical History: Yes Neurological History: No Pertinent History ENT History: No Pertinent History Cardiac History: No Pertinent History Respiratory History: Asthma Endocrine Medical History: No Pertinent History Musculoskeletal History: No Pertinent History GI Medical History: No Pertinent History History: No Pertinent History Psycho-Social History: Bipolar Female Reproductive Disorders: No Pertinent History - Past Surgical History Past Surgical History: Yes Neuro Surgical History: No Pertinent History Cardiac: No Pertinent History Respiratory: No Pertinent History Gastrointestinal: Cholecystectomy, Hernia Repair Genitourinary: No Pertinent History Musculoskeletal: No Pertinent History, Orthopedic Surgery Female Surgical History: Section Other Surgical History: hernia repair with mesh x2, rt foot surgery x2 - Social History Smoking Status: Current every day smoker How long have you smoked: 10 years Exposure to second hand smoke: Yes Drug Use: none Patient Lives Alone: No - Female History Hx Now: No - Nursing Vital Signs Nursing Vital Signs: Initial Vital Signs Temperature 98.1 F 09/06/21 21:20 Pulse Rate 110 H 09/06/21 21:20 Respiratory Rate 24 09/06/21 21:20 Blood Pressure 106/74 09/06/21 21:20 O2 Sat by Pulse Oximetry 100 09/06/21 21:20 Pain Scale Pain Intensity 5 - Physical Exam General Appearance: moderate distress Eye Exam: PERRL/EOMI Ears, Nose, Throat Exam: normal ENT inspection, moist mucous membranes Neck Exam: normal inspection, supple, full range of motion, No meningismus Respiratory Exam: normal breath sounds, lungs clear Cardiovascular Exam: regular rate/rhythm, normal heart sounds Gastrointestinal/Abdominal Exam: soft, No tenderness, No distention Back Exam: normal inspection, normal range of motion Mental Status Exam: alert, oriented x 3, 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: normal speech, PERRL, No facial droop Coordination/Gait Exam: normal cerebellar function Motor/Sensory Exam: no motor deficit, no sensory deficit Skin Exam: normal color, warm, dry, No rash SpO2: 100 - Course Nursing assessment & vital signs reviewed: Yes - Radiology Exams Chest X-ray Interpretation: Interpreted by me, Negative - CT Exams Head CT Interpretation: Tele-radiologist Report Ordered Tests: Active Orders 24 hr Category Date Time Status 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 STAT Care 09/06/21 21:25 Active IV Insertion STAT Care 09/06/21 21:24 Active CHEST 1 VIEW (PORTABLE) Stat Exams 09/06/21 21:30 Taken HEAD WITHOUT CONTRAST [CT] Stat Exams 09/06/21 21:25 Taken BLOOD CULTURE Stat Lab 09/06/21 21:24 Ordered CBC W DIFF Stat Lab 09/06/21 22:12 Completed CMP Stat Lab 09/06/21 22:12 Completed D-DIMER QUANTITATIVE Stat Lab 09/06/21 22:12 Completed Lactic Acid Urgent Lab 09/06/21 22:10 Completed PROTIME WITH INR Stat Lab 09/06/21 22:12 Completed Medication Summary Discontinued Medications Generic Name Dose Route Start Last Admin Trade Name Freq PRN Reason Stop Dose Admin Diphenhydramine HCl 25 mg 09/06/21 21:24 09/06/21 21:57 Diphenhydramine Hcl 50 Mg/Ml Vial IV 09/06/21 21:25 25 mg STAT ONE Administration Diphenhydramine HCl Confirm 09/06/21 21:51 Diphenhydramine Hcl 50 Mg/Ml Vial Administered 09/06/21 21:52 Dose 50 mg .ROUTE .STK-MED ONE Fentanyl Citrate 75 mcg 09/06/21 21:24 09/06/21 21:58 Fentanyl Citrate 100 Mcg/2 Ml* Vial IV 09/06/21 21:25 75 mcg STAT ONE Administration Fentanyl Citrate Confirm 09/06/21 21:51 Fentanyl Citrate 100 Mcg/2 Ml* Vial Administered 09/06/21 21:52 Dose 100 mcg .ROUTE .STK-MED ONE Sodium Chloride 1,000 mls @ 999 mls/hr 09/06/21 21:24 09/06/21 23:07 Sodium Chloride 0.9% 1000 Ml IV 09/06/21 22:24 Infused .Q1H1M STA Infusion Sodium Chloride Confirm 09/06/21 21:51 Sodium Chloride 0.9% 1000 Ml Administered 09/06/21 21:52 Dose 1,000 mls @ ud .ROUTE .STK-MED ONE Ketorolac Tromethamine 30 mg 09/06/21 21:24 09/06/21 21:57 Ketorolac Tromethamine 30 Mg/Ml Inj IV 09/06/21 21:25 30 mg STAT ONE Administration Ketorolac Tromethamine Confirm 09/06/21 21:51 Ketorolac Tromethamine 30 Mg/Ml Inj Administered 09/06/21 21:52 Dose 30 mg .ROUTE .STK-MED ONE Metoclopramide HCl 10 mg 09/06/21 21:24 09/06/21 21:57 Metoclopramide Hcl 10 Mg/2 Ml Vial IV 09/06/21 21:25 10 mg STAT ONE Administration Metoclopramide HCl Confirm 09/06/21 21:51 Metoclopramide Hcl 10 Mg/2 Ml Vial Administered 09/06/21 21:52 Dose 10 mg .ROUTE .STK-MED ONE Lab/Rad Data: Laboratory Result Diagrams 09/06/21 22:12 09/06/21 22:12 Laboratory Results 09/06/21 09/06/21 09/06/21 Range/Units 22:54 22:12 22:12 WBC (4.0-10.5) K/mm3 RBC (4.1-5.4) M/mm3 Hgb (12.0-16.0) gm/dl Hct (35-47) % MCV (78-100) fl MCH (26-32) pg MCHC (32-36) g/dl RDW (11.5-14.0) % Plt Count (150-450) K/mm3 MPV (7.5-11.0) fl Gran % (36.0-66.0) % Eos # (Auto) (0-0.5) Absolute Lymphs (auto) (1.0-4.6) Absolute Monos (auto) (0.0-1.3) Lymphocytes % (24.0-44.0) % Monocytes % (0.0-12.0) % Eosinophils % (0.00-5.0) % Basophils % (0.0-0.4) % Absolute Granulocytes (1.4-6.9) Basophils # (0-0.4) PT 10.9 (9.4-12.5) SECONDS INR 0.92 (0.8-3.0) D-Dimer 728 H* (215-500) ng/mL Sodium 140 (137-145) mmol/L Potassium 3.4 L (3.5-5.1) mmol/L Chloride 103 (98-107) mmol/L Carbon Dioxide 27 (22-30) mmol/L Anion Gap 13.1 (5-15) MEQ/L BUN 10 (7-17) mg/dL Creatinine 0.59 (0.52-1.04) mg/dL Estimated GFR > 60.0 ML/MIN Glucose 114 H (74-106) mg/dL Lactic Acid (0.4-2.0) Calcium 9.0 (8.4-10.2) mg/dL Total Bilirubin 0.20 (0.2-1.3) mg/dL AST 38 H (14-36) U/L ALT 43 H (0-35) U/L Alkaline Phosphatase 72 (38-126) U/L Serum Total Protein 7.1 (6.3-8.2) g/dL Albumin 4.0 (3.5-5.0) g/dL Influenza Type A Ag NEGATIVE (NEGATIVE) Influenza Type B Ag NEGATIVE (NEGATIVE) RSV (PCR) NEGATIVE (Negative) SARS-CoV-2 (PCR) NEGATIVE (NEGATIVE) 09/06/21 09/06/21 Range/Units 22:12 22:10 WBC 7.7 (4.0-10.5) K/mm3 RBC 4.45 (4.1-5.4) M/mm3 Hgb 13.0 (12.0-16.0) gm/dl Hct 41.0 (35-47) % MCV 92.1 (78-100) fl MCH 29.2 (26-32) pg MCHC 31.7 L (32-36) g/dl RDW 13.0 (11.5-14.0) % Plt Count 239 (150-450) K/mm3 MPV 10.6 (7.5-11.0) fl Gran % 59.3 (36.0-66.0) % Eos # (Auto) 0.31 (0-0.5) Absolute Lymphs (auto) 2.12 (1.0-4.6) Absolute Monos (auto) 0.68 (0.0-1.3) Lymphocytes % 27.5 (24.0-44.0) % Monocytes % 8.8 (0.0-12.0) % Eosinophils % 4.0 (0.00-5.0) % Basophils % 0.4 (0.0-0.4) % Absolute Granulocytes 4.56 (1.4-6.9) Basophils # 0.03 (0-0.4) PT (9.4-12.5) SECONDS INR (0.8-3.0) D-Dimer (215-500) ng/mL Sodium (137-145) mmol/L Potassium (3.5-5.1) mmol/L Chloride (98-107) mmol/L Carbon Dioxide (22-30) mmol/L Anion Gap (5-15) MEQ/L BUN (7-17) mg/dL Creatinine (0.52-1.04) mg/dL Estimated GFR ML/MIN Glucose (74-106) mg/dL Lactic Acid 1.4 (0.4-2.0) Calcium (8.4-10.2) mg/dL Total Bilirubin (0.2-1.3) mg/dL AST (14-36) U/L ALT (0-35) U/L Alkaline Phosphatase (38-126) U/L Serum Total Protein (6.3-8.2) g/dL Albumin (3.5-5.0) g/dL Influenza Type A Ag (NEGATIVE) Influenza Type B Ag (NEGATIVE) RSV (PCR) (Negative) SARS-CoV-2 (PCR) (NEGATIVE) - Progress Progress: improved Air Movement: good Blood Culture(s) Obtained: No Antibiotics given: Yes - Departure Departure Disposition: Home Clinical Impression: Sinus headache Condition: Stable Critical Care Time: No Referrals: DUSTIN MEZA NP [Primary Care Provider] - Instructions: Sinus Headache (DC) Prescriptions: Cephalexin Mh 500 mg [Keflex 500 mg] 500 mg PO TID #21 cap
[2021-09-07] VITALS: BP 100/55; PULSE 77
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
== END 2021-09-07 | disposition home or self-care (01) ==
LOC: ED 20:30
DX: R51.9 Headache, unspecified (principal)
CPT/HCPCS: 0241U; 36000; 36415; 70450; 71045; 80053; 83605; 85025; 85379; 85610; 87040; 93041; 96360; 96361; 96374; 96375; 99285; J1200; J1885; J3010